=== PATIENT | female | born 2000 | race African-American/Black ===

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

== ENCOUNTER 2021-03-16 10:18 | Inpatient (IN) | payer OTHER, SELFPAY ==
[2021-03-16 13:21] LABS: Actual Bicarbonate (HCO3v) 28 mEq/L (22-28); Analyzer IN Cardio ER; Base Excess 4.2 mEq/L (-2.0 to +3.0); Calcium, Ionized (venous) 0.99 mmol/L (1.16-1.32); Chloride (VBG) 98 mmol/L (98-106); Hemoglobin (Hb) 11.9 g/dL (11.7-15.5); Potassium (VBG) 4.02 mmol/L (3.70-5.30); Sodium 135.9 mmol/L (133-146); pH (venous) 7.47 (7.32-7.43)
[2021-03-16 13:27] LABS: BHCG - Serum Negative (NEGATIVE); Pregs Control Background? CLEAR/WHITE (CLR/WHITE); Pregs Control Bar Appear? YES (CONTROL BAR)
[2021-03-16 13:34] LABS: Hemoglobin 10.8 g/dL (12.0-16.0); Mean Corpuscular HGB CONC 31.7 g/dL (32.0-36.0); Mean Corpuscular Hemoglobin 19.5 pg (25.0-35.0); Mean Corpuscular Volume 61.5 fL (78.0-98.0); Mean Platelet Volume 7.3 fL (7.4-10.4); Platelet Count 463 thou/uL (130-400); RBC Distribution Width 20.8 % (11.5-14.5); Red Blood Cell (RBC) Count 5.53 mill/uL (4.00-5.20); White Blood Cell (WBC) Count 9.1 thou/uL (4.8-10.8)
[2021-03-16 13:37] LABS: CRP (Inflammatory) 6.31 mg/dL (= or < 0.5)
[2021-03-16 13:39] LABS: ALT (SGPT) 12 U/L (8-55); AST (SGOT) 20 U/L (5-34); Albumin 3.7 g/dL (3.5-5.0); Alkaline Phosphatase 78 U/L (40-100); Anion Gap 18 mmol/L (10-20); BUN (Urea Nitrogen) 11 mg/dL (7.0-18.7); Bilirubin, Total 0.5 mg/dL (0.2-1.2); Calc. Creatinine Clearance 0 mL/min (70-130); Calcium 9.5 mg/dL (7.8-10.44); Carbon Dioxide 25 mmol/L (22-29); Chloride 97 mmol/L (98-107); Globulin 4.8 g/dL (2.4-3.5); Glucose 86 mg/dL (70-105); Protein, Total 8.5 g/dL (6.0-8.3); Sodium 136 mmol/L (136-145)
[2021-03-16] MEDS ORDERED: Dexamethasone 10 MG/ML VIAL ONE (13:40)
[2021-03-16 13:56] LABS: Anisocytosis SLIGHT = 6-15 cells (100X) (0-5/hpf); Band 6 % (5-11); Hypochromia MODERATE=16-30 cells (100X) (0-5/hpf); Lymphocytes 22 % (28-48); MDiff Complete? YES; Microcytosis MODERATE=15-30 cells (100X) (0-5/hpf); Monocytes 3 % (0-4); Neutrophil 69 % (31-61); Platelet Morphology Comment Appears Increased; Polychromasia SLIGHT = 2-3 cells (100X) (0-2/hpf); Reflex for Review?? YES
[2021-03-16] MEDS ORDERED: Enoxaparin Sodium 100 MG/ML SYRINGE ONE (15:54)
[2021-03-16] MEDS ORDERED: Enoxaparin Sodium 30 MG/0.3 ML SYRINGE ONE (15:54)
[2021-03-16 15:55] LABS: SARS-CoV-2 NAA Rapid Test DETECTED (NotDetected)
[2021-03-16] MEDS ORDERED: guaiFENesin 200 MG TAB PO PRN (18:21)
[2021-03-16] MEDS ORDERED: Ondansetron PF 4 MG/2 ML Vial IVP PRN (18:34)
[2021-03-16] MEDS ORDERED: Ondansetron ODT 4 MG TAB PO PRN (18:34)
[2021-03-16] MEDS ORDERED: Senokot S 8.6-50 MG TAB PO PRN (18:34)
[2021-03-16] MEDS: Sodium Chloride 0.9% 1,000 ML IV SCH (18:45)
[2021-03-16] MEDS: Acetaminophen 325 MG TAB PO PRN (19:30)
[2021-03-16] MEDS ORDERED: Acetaminophen 325 MG TAB ONE (19:31)
[2021-03-16 20:25] LABS: Iron 16 ug/dL (50-170); Iron Binding Capacity, Total 470 mcg/dL (265-497)
[2021-03-16 23:59] VITALS: BMI 73.7
[2021-03-17] MEDS ORDERED: Enoxaparin Sodium 120 MG/0.8 ML SYRINGE SC SCH (04:00)
[2021-03-17] MEDS: Sodium Chloride 0.9% 1,000 ML IV SCH ×2 (04:12→12:17)
[2021-03-17 07:07] LABS: Hemoglobin 10.2 g/dL (12.0-16.0); Mean Corpuscular Hemoglobin 18.3 pg (25.0-35.0); Mean Platelet Volume 6.5 fL (7.4-10.4); Platelet Count 457 thou/uL (130-400); RBC Distribution Width 20.6 % (11.5-14.5); Red Blood Cell (RBC) Count 5.56 mill/uL (4.00-5.20); White Blood Cell (WBC) Count 7.2 thou/uL (4.8-10.8)
[2021-03-17] MEDS ORDERED: REMDESIVIR 200 MG in Sodium Chloride 0.9% 250 ML 210 ML IV SCH (08:45)
[2021-03-17] MEDS ORDERED: Dexamethasone 10 MG in Sodium Chloride 0.9% 50 ML IVPB SCH (09:00)
[2021-03-17] MEDS: Dexamethasone 10 MG/ML VIAL SLOW IVP SCH (09:08)
[2021-03-17] MEDS: Ascorbic Acid 500 mg Chewable Tablet PO SCH (09:08)
[2021-03-17] MEDS: Ferrous Sulfate 325 MG TAB PO SCH (09:08)
[2021-03-17] MEDS: Zinc Sulfate 220 MG CAP PO SCH (09:08)
[2021-03-17 10:28] LABS: Band 16 % (5-11); Hypochromia MODERATE=16-30 cells (100X) (0-5/hpf); Lymphocytes 19 % (28-48); MDiff Complete? YES; Microcytosis MARKED = >30 cells (100X) (0-5/hpf); Monocytes 6 % (0-4); Neutrophil 59 % (31-61); Platelet Morphology Comment Appears Increased; Polychromasia SLIGHT = 2-3 cells (100X) (0-2/hpf)
[2021-03-17] MEDS: Apixaban 5 MG TAB PO SCH (20:53)
[2021-03-17] MEDS: Benzonatate 100 MG CAP PO PRN (22:27)
[2021-03-17 23:38] LABS: Bilirubin Negative (Negative); Blood, Urine 3+ (Negative); Clarity Turbid (Clear); Glucose, Urine (Dipstick) Normal (Negative); Ketone, Urine Negative (Negative); Leukocyte 25 Leu/uL (Negative); Nitrite 1+ (Negative); Protein, Urine (Dipstick) 50 mg/dL (Neg-Trace); Specific Gravity, Urine 1.021 (1.002-1.036); Squamous Epithelial None Seen HPF (0-3); Urobilinogen 3 mg/dL (Less than 2)
[2021-03-17 23:40] LABS: Bacteria/HPF 3+ HPF (None Seen)
[2021-03-18] MEDS: Dexamethasone 10 MG/ML VIAL SLOW IVP SCH (09:25)
[2021-03-18] MEDS: Ferrous Sulfate 325 MG TAB PO SCH ×2 (09:25→20:25)
[2021-03-18] MEDS: Apixaban 5 MG TAB PO SCH ×2 (09:25→20:25)
[2021-03-18] MEDS: REMDESIVIR 100 MG in Sodium Chloride 0.9% 250 ML 230 ML IV SCH (09:25)
[2021-03-18] MEDS: Zinc Sulfate 220 MG CAP PO SCH (09:25)
[2021-03-18] MEDS: Ascorbic Acid 500 mg Chewable Tablet PO SCH (09:26)
[2021-03-18] MEDS: Benzonatate 100 MG CAP PO PRN ×2 (09:27→20:32)
[2021-03-19 06:16] LABS: Hemoglobin 9.5 g/dL (12.0-16.0); Mean Corpuscular Hemoglobin 18.2 pg (25.0-35.0); Mean Corpuscular Volume 60.8 fL (78.0-98.0); Mean Platelet Volume 6.2 fL (7.4-10.4); Platelet Count 520 thou/uL (130-400); RBC Distribution Width 20.5 % (11.5-14.5); Red Blood Cell (RBC) Count 5.19 mill/uL (4.00-5.20); White Blood Cell (WBC) Count 9.2 thou/uL (4.8-10.8)
[2021-03-19 06:26] LABS: Anion Gap 14 mmol/L (10-20); BUN (Urea Nitrogen) 16 mg/dL (7.0-18.7); CRP (Inflammatory) 1.79 mg/dL (= or < 0.5); Calc. Creatinine Clearance 426 mL/min (70-130); Calcium 9.2 mg/dL (7.8-10.44); Carbon Dioxide 26 mmol/L (22-29); Chloride 102 mmol/L (98-107); Glucose 97 mg/dL (70-105); Potassium 3.9 mmol/L (3.5-5.1); Sodium 138 mmol/L (136-145)
[2021-03-19 06:39] LABS: Anisocytosis SLIGHT = 6-15 cells (100X) (0-5/hpf); Band 4 % (5-11); Hypochromia MODERATE=16-30 cells (100X) (0-5/hpf); Lymphocytes 23 % (28-48); MDiff Complete? YES; Microcytosis MODERATE=15-30 cells (100X) (0-5/hpf); Monocytes 3 % (0-4); Neutrophil 69 % (31-61); Reactive Lymphocytes 1 % (0-10); Target Cells SLIGHT = 2-5 cells (100X) (0-1/hpf)
[2021-03-19] MEDS: Dexamethasone 10 MG/ML VIAL SLOW IVP SCH (10:46)
[2021-03-19] MEDS: Zinc Sulfate 220 MG CAP PO SCH (10:46)
[2021-03-19] MEDS: Ferrous Sulfate 325 MG TAB PO SCH ×2 (10:46→21:02)
[2021-03-19] MEDS: Ascorbic Acid 500 mg Chewable Tablet PO SCH (10:46)
[2021-03-19] MEDS: REMDESIVIR 100 MG in Sodium Chloride 0.9% 250 ML 230 ML IV SCH (10:47)
[2021-03-19] MEDS ORDERED: Albuterol 200 PUFF (6.7GM INHALER) INH PRN (18:21)
[2021-03-19] MEDS: Albuterol 200 PUFF (6.7GM INHALER) INH SCH ×2 (18:47→21:01)
[2021-03-19] MEDS: guaiFENesin ER 600 MG TAB PO SCH (21:03)
[2021-03-20] MEDS: Albuterol 200 PUFF (6.7GM INHALER) INH SCH ×6 (02:28→23:26)
[2021-03-20] MEDS: Ascorbic Acid 500 mg Chewable Tablet PO SCH (08:52)
[2021-03-20] MEDS: guaiFENesin ER 600 MG TAB PO SCH ×2 (08:53→20:39)
[2021-03-20] MEDS: Zinc Sulfate 220 MG CAP PO SCH (08:53)
[2021-03-20] MEDS: Ferrous Sulfate 325 MG TAB PO SCH (08:53)
[2021-03-20] MEDS: Dexamethasone 10 MG/ML VIAL SLOW IVP SCH (08:54)
[2021-03-20] MEDS ORDERED: Enoxaparin Sodium 40 MG/0.4 ML SYRINGE SC SCH (09:00)
[2021-03-20] MEDS: REMDESIVIR 100 MG in Sodium Chloride 0.9% 250 ML 230 ML IV SCH (10:15)
[2021-03-20] MEDS: Acetaminophen 325 MG TAB PO PRN (12:00)
[2021-03-20] MEDS ORDERED: Calcium Carbonate 500 MG ChewTAB PO PRN (15:46)
[2021-03-21] MEDS: Albuterol 200 PUFF (6.7GM INHALER) INH SCH ×4 (02:45→15:00)
[2021-03-21 06:01] LABS: Hemoglobin 9.4 g/dL (12.0-16.0)
[2021-03-21] MEDS ORDERED: Dexamethasone 4 MG TAB PO SCH (08:00)
[2021-03-21 08:49] VITALS: TEMP 97.6
[2021-03-21] MEDS: Zinc Sulfate 220 MG CAP PO SCH (09:47)
[2021-03-21] MEDS: REMDESIVIR 100 MG in Sodium Chloride 0.9% 250 ML 230 ML IV SCH (09:47)
[2021-03-21] MEDS: Ascorbic Acid 500 mg Chewable Tablet PO SCH (09:48)
[2021-03-21] MEDS: guaiFENesin ER 600 MG TAB PO SCH (09:48)
[2021-03-21 12:53] VITALS: BP 111/62
== END 2021-03-21 16:50 | disposition home or self-care (01) | DRG 871 ==
LOC: ERS 10:18 → ERHOLD 15:06 → 2SW 23:29
PROVIDERS: ADMIT Family Medicine; ATTEND Internal Medicine
PROC: 8E0ZXY6 Isolation (ICD-10-PCS; principal; 2021-03-16)
PROC: 3E0333Z Introduction of Anti-inflammatory into Peripheral Vein, Percutaneous Approach (ICD-10-PCS; 2021-03-16)
PROC: XW033E5 Introduction of Remdesivir Anti-infective into Peripheral Vein, Percutaneous Approach, New Technology Group 5 (ICD-10-PCS; 2021-03-17)
DX: A41.9 Sepsis, unspecified organism (principal); U07.1 COVID-19; J12.82 Pneumonia due to coronavirus disease 2019; J96.01 Acute respiratory failure with hypoxia; Z68.45 Body mass index [BMI] 70 or greater, adult; R65.20 Severe sepsis without septic shock; E66.01 Morbid (severe) obesity due to excess calories; D50.0 Iron deficiency anemia secondary to blood loss (chronic); D75.839 Thrombocytosis, unspecified; R63.0 Anorexia; Z79.899 Other long term (current) drug therapy
CPT/HCPCS: 0240U; 36415; 71045; 80048; 80053; 81001; 82550; 82728; 82805; 83540; 83550; 83605; 83880; 84484; 84703; 85007; 85014; 85018; 85025; 85027; 85060; 85379; 85730; 86140; 93005; 93970; 94760; 96372; 96374; J0248; J1100; J1650; J7050; J8540; Q0162

== ENCOUNTER 2021-09-08 15:34 | Inpatient (IN) | payer OTHER, SELFPAY ==
[~2021-09-08 15:34] MED LIST: ISOVUE-370 76%-LOCM 1 ML ONE
[2021-09-08 16:18] LABS: Hemoglobin 8.6 g/dL (12.0-16.0); Mean Corpuscular HGB CONC 29.6 g/dL (32.0-36.0); Mean Corpuscular Hemoglobin 18.1 pg (27.0-31.0); Mean Corpuscular Volume 61.2 fL (78.0-98.0); Mean Platelet Volume 5.8 fL (7.4-10.4); Platelet Count 627 thou/uL (130-400); RBC Distribution Width 21.4 % (11.5-14.5); Red Blood Cell (RBC) Count 4.74 mill/uL (4.20-5.40); White Blood Cell (WBC) Count 25.1 thou/uL (4.8-10.8)
[2021-09-08 16:33] LABS: Anisocytosis MODERATE=16-30 cells (100X) (0-5/hpf); Band 18 % (5-11); Eosinophils 1 % (0-10); Hypochromia MODERATE=16-30 cells (100X) (0-5/hpf); Lymphocytes 22 % (21-51); MDiff Complete? YES; Microcytosis MODERATE=15-30 cells (100X) (0-5/hpf); Monocytes 9 % (0-10); Neutrophil 47 % (42-75); Ovalocytes SLIGHT = 2-5 cells (100X) (0-1/hpf); Platelet Morphology Comment Appears Increased; Poikilocytosis SLIGHT = 6-15 cells (100X) (0-5/hpf); Polychromasia MODERATE = 3-4 cells (100X) (0-2/hpf); Reactive Lymphocytes 1 % (0-10); Reflex for Review?? NO; Target Cells MODERATE= 6-15 cells (100X) (0-1/hpf); Tear Drops SLIGHT = 2-5 cells (100X) (0-1/hpf)
[2021-09-08 16:38] LABS: ALT (SGPT) 24 U/L (8-55); AST (SGOT) 22 U/L (5-34); Albumin 3.5 g/dL (3.5-5.0); Alkaline Phosphatase 128 U/L (40-110); Anion Gap 16 mmol/L (10-20); BUN (Urea Nitrogen) 6 mg/dL (7.0-18.7); Bilirubin, Total 0.6 mg/dL (0.2-1.2); Calc. Creatinine Clearance 0 mL/min (70-130); Calcium 9.9 mg/dL (7.8-10.44); Carbon Dioxide 28 mmol/L (22-29); Chloride 97 mmol/L (98-107); Estimated GFR 118; Globulin 4.6 g/dL (2.4-3.5); Glucose 81 mg/dL (70-105); Lipase 9 U/L (8-78); Potassium 3.3 mmol/L (3.5-5.1); Protein, Total 8.1 g/dL (6.0-8.3); Sodium 138 mmol/L (136-145)
[2021-09-08 16:43] LABS: BHCG - Serum Negative (NEGATIVE); Pregs Control Background? CLEAR/WHITE (CLR/WHITE); Pregs Control Bar Appear? YES (CONTROL BAR)
[2021-09-08] MEDS ORDERED: Ondansetron PF 4 MG/2 ML Vial ONE (17:25)
[2021-09-08 18:35] LABS: INR-International Normal Ratio 1.2; Prothrombin Time 15.2 sec (12.0-14.7)
[2021-09-08 18:36] LABS: PTT 36.3 sec (22.9-36.1)
[2021-09-08 18:53] LABS: SARS-CoV-2 NAA Rapid Test Not Detected (NotDetected)
[2021-09-08] MEDS ORDERED: Piperacillin/Tazobactam 4.5 GM VIAL ONE (20:23)
[2021-09-08] MEDS ORDERED: Ondansetron ODT 4 MG TAB PO PRN (22:11)
[2021-09-08] MEDS ORDERED: Acetaminophen 325 MG TAB PO PRN (22:11)
[2021-09-08] MEDS ORDERED: Acetaminophen 650 MG Suppository PR PRN (22:11)
[2021-09-08] MEDS ORDERED: Ondansetron PF 4 MG/2 ML Vial IVP PRN (22:11)
[2021-09-08 22:47] VITALS: BMI 62.6
[2021-09-08] MEDS: Sodium Chloride 0.9% 1,000 ML IV SCH (23:11)
[2021-09-09] MEDS ORDERED: Morphine 4 MG/ML VIAL SLOW IVP PRN (00:21)
[2021-09-09] MEDS: Piperacillin/Tazobactam 3.375 GM in Sodium Chloride 0.9% 100 ML IVPB SCH ×2 (00:43→08:22)
[2021-09-09] MEDS ORDERED: Electrolyte Replacement Protocol 1 EACH FS SCH (01:15)
[2021-09-09] MEDS: Potassium Chloride 20 MEQ in Premix Bag 1 BAG IVPB SCH ×2 (04:17→06:11)
[2021-09-09 05:30] LABS: Band 20 % (5-11); Hemoglobin 7.7 g/dL (12.0-16.0); Hypochromia SLIGHT = 6-15 cells (100X) (0-5/hpf); Lymphocytes 21 % (21-51); MDiff Complete? YES; Mean Corpuscular Hemoglobin 17.9 pg (27.0-31.0); Mean Corpuscular Volume 61.9 fL (78.0-98.0); Mean Platelet Volume 6.1 fL (7.4-10.4); Monocytes 4 % (0-10); Neutrophil 55 % (42-75); Platelet Count 562 thou/uL (130-400); Platelet Morphology Comment Appears Increased; RBC Distribution Width 20.6 % (11.5-14.5); Red Blood Cell (RBC) Count 4.32 mill/uL (4.20-5.40); White Blood Cell (WBC) Count 21.9 thou/uL (4.8-10.8)
[2021-09-09 06:00] LABS: Magnesium 2.2 mg/dL (1.6-2.6)
[2021-09-09 06:01] LABS: Iron 13 ug/dL (50-170); Iron Binding Capacity, Total 329 mcg/dL (265-497)
[2021-09-09 06:06] LABS: Anion Gap 17 mmol/L (10-20); BUN (Urea Nitrogen) 6 mg/dL (7.0-18.7); Calc. Creatinine Clearance 323 mL/min (70-130); Calcium 9.3 mg/dL (7.8-10.44); Carbon Dioxide 27 mmol/L (22-29); Chloride 100 mmol/L (98-107); Estimated GFR 109; Glucose 76 mg/dL (70-105); Iron 11 ug/dL (50-170); Iron Binding Capacity, Total 326 mcg/dL (265-497); Potassium 3.6 mmol/L (3.5-5.1); Sodium 140 mmol/L (136-145)
[2021-09-09] MEDS: Sodium Chloride 0.9% 1,000 ML IV SCH (06:11)
[2021-09-09] MEDS ORDERED: Iron Sucrose Complex 100 MG in Sodium Chloride 0.9% 100 ML IVPB SCH (09:00)
[2021-09-09] MEDS ORDERED: Iron, Sodium Ferric Gluconate 125 MG in Sodium Chloride 0.9% 100 ML IVPB SCH (09:00)
[2021-09-09] MEDS ORDERED: Enoxaparin Sodium 40 MG/0.4 ML SYRINGE SC SCH (09:00)
[2021-09-09] MEDS ORDERED: metroNIDAZOLE 500 MG in Premix Bag 1 BAG IVPB SCH (10:00)
[2021-09-09 11:38] VITALS: BP 135/84; TEMP 99.2
[2021-09-09 11:58] LABS: Chlamydia by PCR Not Detected (NotDetected); GC by PCR Not Detected (NotDetected)
== END 2021-09-09 14:23 | disposition short-term general hospital (02) | DRG 872 ==
LOC: ERS 15:34 → SURG A 20:07
PROVIDERS: ADMIT Student in an Organized Health Care Education/Training Program; ATTEND Internal Medicine
DX: A41.9 Sepsis, unspecified organism (principal); Z68.44 Body mass index [BMI] 60.0-69.9, adult; E66.01 Morbid (severe) obesity due to excess calories; D64.9 Anemia, unspecified; E87.6 Hypokalemia; Z20.822 Contact with and (suspected) exposure to COVID-19; N70.93 Salpingitis and oophoritis, unspecified
CPT/HCPCS: 36415; 71045; 74177; 76856; 80048; 80053; 82728; 83540; 83550; 83605; 83690; 83735; 84703; 85025; 85610; 85730; 86850; 86900; 86901; 87040; 87480; 87491; 87510; 87591; 87660; 93005; 93976; 96361; 96365; 96375; J1650; J2270; J2405; J2543; J2916; J3480; J3490; J7050; Q9966; U0002

== ENCOUNTER 2023-01-01 21:43 | Emergency (ER) | payer SELFPAY ==
[2023-01-01] MEDS ORDERED: Lidocaine 1% PF 5 ML VIAL ONE (22:08)
[2023-01-01] MEDS ORDERED: Boostrix 0.5 ML (Tdap) VIAL (>/=7 yrs of age) ONE (22:40)
== END 2023-01-01 22:48 | disposition home or self-care (01) ==
LOC: ERS 21:43
DX: L03.011 Cellulitis of right finger (principal); Z23 Encounter for immunization
CPT/HCPCS: 87070; 87076; 87205; 90471; 90715

== ENCOUNTER 2024-11-01 22:04 | Emergency (ER) | payer OTHER, SELFPAY ==
[2024-11-01] MEDS ORDERED: Ibuprofen 800 MG TAB ONE (23:00)
== END 2024-11-01 23:37 | disposition home or self-care (01) ==
LOC: ERS 22:04
DX: S93.402A Sprain of unspecified ligament of left ankle, initial encounter (principal); X50.1XXA Overexertion from prolonged static or awkward postures, initial encounter
CPT/HCPCS: 99283